=== PATIENT | female | born 1950 | race Caucasian/White ===

== ENCOUNTER → 2016-12-28 17:18 | Outpatient (CLI) | payer BC ==
[2009-10-27 07:14] VITALS: BMI 29.2
== END | disposition home or self-care (01) ==
LOC: D.MAMMO 13:00
DX: Z12.31 Encounter for screening mammogram for malignant neoplasm of breast (principal)

== ENCOUNTER → 2018-01-12 13:51 | Outpatient (CLI) | payer MEDICARE, BC ==
[2009-10-27 07:14] VITALS: BMI 29.2
== END | disposition home or self-care (01) ==
LOC: D.CT 13:51
DX: R51 Headache (principal)

== ENCOUNTER 2019-12-10 08:00 | Outpatient (CLI) | payer MEDICARE, BC ==
[2009-10-27 07:14] VITALS: BMI 29.2
== END 2019-12-10 13:46 | disposition home or self-care (01) ==
LOC: D.MAMMO 08:00
PROVIDERS: ATTEND Family Medicine
DX: Z12.31 Encounter for screening mammogram for malignant neoplasm of breast (principal)